=== PATIENT | male | born 1970 | race Caucasian/White ===

== ENCOUNTER 2017-10-29 06:52 | Day surgery (SDC) | payer OTHER ==
[~2017-10-29] VITALS: Ht 170.2 cm; Wt 117.2 kg
[~2017-10-29 06:52] MED LIST: FEOSOL325 MG PO; NON-ASPIRIN EX500 M2 PO; OSTEO BI-FLEX1 EAC3 PO; VITAMIN B-121000 MCG PO
[2017-10-29] MEDS ORDERED: VITAMIN C500 MG PO (07:49)
[2017-10-29 08:01] VITALS: BP 146/94
[2017-10-29 13:00] VITALS: BP 125/95
[2017-10-29 14:17] VITALS: BP 126/79
[2017-10-29 15:30] VITALS: BP 134/85
== END 2017-10-29 15:55 | disposition home or self-care (01) ==
LOC: SDC 06:52
PROC: 0SR90JZ Replacement of Right Hip Joint with Synthetic Substitute, Open Approach (ICD-10-PCS; principal; 2017-10-29)
DX: M16.11 Unilateral primary osteoarthritis, right hip (principal); F10.21 Alcohol dependence, in remission; F17.200 Nicotine dependence, unspecified, uncomplicated
CPT/HCPCS: 73501; C1713; J0690; J2250; J7050; S0020